=== PATIENT | male | born 1995 | race Caucasian/White ===

== ENCOUNTER 2017-08-08 03:07 | Emergency (ER) | payer OTHER | END 2017-08-08 04:05 | disposition home or self-care (01) | LOC: D.ER 03:07 | DX: M79.631 Pain in right forearm (principal); S50.11XA Contusion of right forearm, initial encounter; W01.0XXA Fall on same level from slipping, tripping and stumbling without subsequent striking against object, initial encounter; Y93.89 Activity, other specified; Y92.019 Unspecified place in single-family (private) house as the place of occurrence of the external cause; F17.200 Nicotine dependence, unspecified, uncomplicated ==

== ENCOUNTER → 2019-06-16 08:33 | Outpatient (CLI) | payer OTHER | END | disposition home or self-care (01) | LOC: D.US 08:30 | PROVIDERS: ATTEND Family Medicine | DX: K90.3 Pancreatic steatorrhea (principal) ==